=== PATIENT | female | born 2000 | race Caucasian/White ===

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

== ENCOUNTER 2018-04-08 09:41 | Emergency (ER) | END 2018-04-08 12:41 | disposition home or self-care (01) ==

== ENCOUNTER 2018-04-09 04:15 | Emergency (ER) | END 2018-04-09 08:00 | disposition home or self-care (01) ==

== ENCOUNTER 2018-08-17 09:13 | Emergency (ER) | payer MEDICAID ==
[~2018-08-17] VITALS: Ht 157.5 cm; Wt 52.4 kg
[~2018-08-17 09:13] MED LIST: BISM262O23 PO; DICY10CA40 PO; FAMO-96 PO; IBUP-1542 PO; METH750T93 PO; ONDA4TAB14 PO
[2018-08-17 09:16] VITALS: BP 149/77; PULSE 85; RESP 18; Ht 157.5 cm; Wt 52.4 kg
[2018-08-17] MEDS ORDERED: ONDANSETRON (ODT) 4 MG TAB ODT STA (09:36)
[2018-08-17] MEDS ORDERED: IBUPROFEN 800 MG TAB PO ONE (10:00)
[2018-08-17] MEDS ORDERED: FAMOTIDINE 20 MG TAB PO ONE (10:00)
[2018-08-17] MEDS ORDERED: FAMO-96 PO (11:07)
[2018-08-17] MEDS ORDERED: TRAM50TA2 PO (11:07)
--- NOTE | 2018-08-17 11:34 | ERD ---
ER Documentation Chief Complaint Chief Complaint EPIGASTRIC PAIN X 2 WKS DIARRHEA TODAY HPI 18-year-old female presenting with epigastric pain times 2 weeks. Patient has had diarrhea that started today. She states her pelvic pain is also associated with epigastric pain. She has had the symptoms for the last week and a half. LNMP July 24. Denies any dysuria. Denies fever. Has a history of gastritis. Denies medical problems. Allergy to Tylenol. Surgical history denies. Social history denies ROS All systems reviewed and are negative except as per history of present illness. Medications Home Meds Active Scripts Tramadol HCl (Tramadol HCl) 50 Mg Tablet, 50 MG PO Q4 PRN for PAIN, #20 TAB Prov:PASQUALE ALVARADO PA-C 08/17/18 Famotidine* (Pepcid*) 20 Mg Tablet, 20 MG PO BID for 4 Days, #30 TAB Prov:PASQUALE ALVARADO PA-C 08/17/18 Ondansetron (Ondansetron Odt) 4 Mg Tab.rapdis, 4 MG PO Q6H PRN for NAUSEA AND/OR VOMITING, #10 TAB Prov:LESIA UNDERWOOD MD 04/09/18 Ibuprofen* (Motrin*) 600 Mg Tab, 600 MG PO Q6H PRN for PAIN AND OR ELEVATED TEMP, #30 TAB Prov:LESIA UNDERWOOD MD 04/09/18 Methocarbamol* (Robaxin*) 750 Mg Tablet, 750 MG PO BID for muscle spasm, #30 TAB Prov:JUSTIN BECKETT DO 04/08/18 Ibuprofen* (Ibuprofen*) 600 Mg Tablet, 600 MG PO Q6H PRN for PAIN, #30 TAB Prov:JUSTIN BECKETT DO 04/08/18 Dicyclomine HCl (Dicyclomine HCl) 10 Mg Capsule, 10 MG PO TID, #20 Prov:GIANFRANCO CRUM 11/20/17 Famotidine* (Pepcid*) 20 Mg Tablet, 20 MG PO BID for 4 Days, TAB Prov:GIANFRANCO CRUM 11/20/17 Bismuth Subsalicylate* (Pepto-Bismol*) 262 Mg/15 Ml Oral.susp, 15 ML PO Q6H PRN for PAIN for 4 Days, #240 ML 0 Refills Prov:JESSIE SAUCEDA PA-C 01/21/16 Allergies Allergies: Coded Allergies: acetaminophen (Verified Allergy, Unknown, 08/17/18) PMhx/Soc History of Surgery: No Anesthesia Reaction: No Hx Neurological Disorder: No Hx Respiratory Disorders: No Hx Cardiac Disorders: No Hx Psychiatric Problems: No Hx Miscellaneous Medical Probl: No Hx Alcohol Use: No Hx Substance Use: No Hx Tobacco Use: No FmHx Family History: No diabetes, No coronary disease, No other Physical Exam Vitals Vital Signs Date Temp Pulse Resp B/P (MAP) Pulse Ox O2 O2 Flow FiO2 Time Delivery Rate 08/17/18 97.9 85 18 149/77 100 09:16 (101) Physical Exam GENERAL: The patient is well-appearing, well-nourished, in no acute distress HEENT: Atraumatic. Conjunctivae are pink. Pupils equal, round, and reactive to light. There is no scleral icterus. Tympanic membranes clear bilaterally. Oropharynx clear. NECK: C-spine is soft and supple. There is no meningismus. There is no cervical lymphadenopathy. CHEST: Clear to auscultation bilaterally. There are no rales, wheezes or rhonchi. HEART: Regular rate and rhythm. No murmurs, clicks, rubs or gallops. No S3 or S4. ABDOMEN: Normal active bowel sounds. No distention. No organomegaly. Mild tenderness palpation epigastric region and pelvic region. Result Diagram: 08/17/18 0951 08/17/18 0951 Results 24 hrs Laboratory Tests Test 08/17/18 09:51 08/17/18 09:53 White Blood Count 7.8 10^3/ul Red Blood Count 4.64 10^6/ul Hemoglobin 10.5 g/dl Hematocrit 35.2 % Mean Corpuscular Volume 75.9 fl Mean Corpuscular Hemoglobin 22.6 pg Mean Corpuscular Hemoglobin Concent 29.8 g/dl Red Cell Distribution Width 16.0 % Platelet Count 327 10^3/UL Mean Platelet Volume 10.7 fl Immature Granulocytes % 0.300 % Neutrophils % 50.8 % Lymphocytes % 38.5 % Monocytes % 7.5 % Eosinophils % 2.3 % Basophils % 0.6 % Nucleated Red Blood Cells % 0.0 /100WBC Immature Granulocytes # 0.020 10^3/ul Neutrophils # 4.0 10^3/ul Lymphocytes # 3.0 10^3/ul Monocytes # 0.6 10^3/ul Eosinophils # 0.2 10^3/ul Basophils # 0.1 10^3/ul Nucleated Red Blood Cells # 0.0 10^3/ul Urine Color YELLOW Urine Clarity CLEAR Urine pH 5.0 Urine Specific [place] 1.024 Urine Ketones NEGATIVE mg/dL Urine Nitrite NEGATIVE mg/dL Urine Bilirubin NEGATIVE mg/dL Urine Urobilinogen NEGATIVE mg/dL Urine Leukocyte Esterase NEGATIVE Edd/ul Urine Hemoglobin NEGATIVE mg/dL Urine Glucose NEGATIVE mg/dL Urine Total Protein NEGATIVE mg/dl Sodium Level 143 mmol/L Potassium Level 4.2 mmol/L Chloride Level 104 mmol/L Carbon Dioxide Level 28 mmol/L Anion Gap 11 Blood Urea Nitrogen 11 mg/dl Creatinine 0.83 mg/dl Est Glomerular Filtrat Rate mL/min > 60 mL/min Glucose Level 100 mg/dl Calcium Level 10.3 mg/dl Total Bilirubin 0.4 mg/dl Direct Bilirubin 0.00 mg/dl Indirect Bilirubin 0.4 mg/dl Aspartate Amino Transf (AST/SGOT) 16 IU/L Alanine Aminotransferase (ALT/SGPT) 15 IU/L Alkaline Phosphatase 73 IU/L Total Protein 7.9 g/dl Albumin 4.6 g/dl Globulin 3.30 g/dl Albumin/Globulin Ratio 1.39 Lipase 70 U/L POC Beta HCG, Qualitative NEGATIVE Current Medications Medications Dose Sig/Beni Start Time Status Last (Trade) Ordered Route PRN Stop Time Admin Dose Reason Admin Famotidine 20 mg ONCE ONCE 08/17/18 DC 08/17/18 (Pepcid) PO 10:00 09:53 08/17/18 10:01 Ibuprofen 800 mg ONCE ONCE 08/17/18 DC 08/17/18 (Motrin) PO 10:00 09:54 08/17/18 10:01 Ondansetron 4 mg ONCE STAT 08/17/18 DC 08/17/18 HCl (Zofran ODT 09:36 09:53 Odt) 08/17/18 09:38 Procedures/MDM DIAGNOSTIC IMAGING REPORT Patient: CELENA KNOX : 2000 Age: 18 Sex: F MR #: [id number] DOS: 08/17/18 0000 Ordering MD: ERIN ALVARADO PA-C Location: E Room/Bed: PROCEDURE: US Abdomen. CLINICAL INDICATION: abdominal pain TECHNIQUE: Multiple real-time images were acquired of the patient's right upper quadrant abdomen and retroperitoneum utilizing a high resolution transducer. COMPARISON: None FINDINGS: The liver demonstrates normal echogenicity. The liver is normal in size and no focal solid lesions are seen. The liver measures 11.4 cm in length. The portal vein is patent with normal direction of flow. No intrahepatic biliary dilatation is seen. No gallstones are identified within the gallbladder. There is no pericholecystic fluid or gallbladder wall thickening. The common bile duct measures 3 mm in maximal dimension. The visualized portions of the pancreas are unremarkable. The tail of the pancreas is not seen. No free fluid is identified. The right kidney is normal in size, and demonstrate normal echogenicity and cortical thickness. The right kidney measures 9.6 cm in long dimension. There is no evidence of hydronephrosis. There are no kidney stones. RPTAT: AA IMPRESSION: Unremarkable right upper quadrant abdominal ultrasound. DIAGNOSTIC IMAGING REPORT Patient: CELENA KNOX : 2000 Age: 18 Sex: F MR #: [id number] DOS: 08/17/18 0000 Ordering MD: ERIN ALVARADO PA-C Location: [facility] Room/Bed: PROCEDURE: US Pelvis. CLINICAL INDICATION: pelvic pain TECHNIQUE: Multiple sonographic images of the pelvis were obtained utilizing transabdominal and endovaginal technique. The images were reviewed on a PACS workstation. COMPARISON: None. FINDINGS: The uterus is normal in size with a normal appearance of the myometrium. The uterus measures 8.3 x 3.6 x 4.5 cm. The endometrial stripe is homogeneous in appearance and has the thickness of 11 mm. The ovaries are normal in size and echogenicity. Normal Doppler flow is identified in both ovaries. The right ovary measures 2.4 x 1.4 x 2.4 cm. The left ovary measures 3.9 x 2.2 x 3.0 cm. There is a 2.2 cm simple cyst in the left ovary. There is a small amount of free fluid in the posterior cul-de-sac. RPTAT: AA IMPRESSION: Small simple cyst in the left ovary. Small amount of free fluid in the posterior cul-de-sac. MDM: 18-year-old female presenting with epigastric pain times 2 weeks. Patient also has some pelvic pain. Patient has ovarian cyst which is likely causing pain. Blood work is within normal limits. I have low suspicion for other acute abdominal emergencies. I will suspicion for infectious etiology. Patient is di scharged with supportive medications and told to follow-up with primary care within 1-2 days for close evaluation. All questions answered at discharge Departure Diagnosis: Primary Impression: Epigastric pain Condition: Stable Patient Instructions: Epigastric Pain (Uncertain Cause) Referrals: [facility] YOU HAVE RECEIVED A MEDICAL SCREENING EXAM AND THE RESULTS INDICATE THAT YOU DO NOT HAVE A CONDITION THAT REQUIRES URGENT TREATMENT IN THE EMERGENCY DEPARTMENT. FURTHER EVALUATION AND TREATMENT OF YOUR CONDITION CAN WAIT UNTIL YOU ARE SEEN IN YOUR DOCTORS OFFICE WITHIN THE NEXT 1-2 DAYS. IT IS YOUR RESPONSIBILITY TO MAKE AN APPOINTMENT FOR FOLOW-UP CARE. IF YOU HAVE A PRIMARY DOCTOR --you should call your primary doctor and schedule an appointment IF YOU DO NOT HAVE A PRIMARY DOCTOR YOU CAN CALL OUR PHYSICIAN REFERRAL HOTLINE AT IF YOU CAN NOT AFFORD TO SEE A PHYSICIAN YOU CAN CHOSE FROM THE FOLLOWING [facility] [address] [facility] [address]. [facility] [address] [facility]. [facility] [address] [facility] [facility] [address] [facility]. [facility] [address] [facility]. [facility]. [address] [place] Additional Instructions: FOLLOW UP WITH YOUR PRIMARY CARE PHYSICIAN TOMORROW.Return to this facility if you are not improving as expected. PASQUALE ALVARADO PA-C Aug 17, 2018 11:34
== END 2018-08-17 11:41 | disposition home or self-care (01) ==
LOC: FTE 09:13
DX: R10.13 Epigastric pain (principal); R10.2 Pelvic and perineal pain
CPT/HCPCS: 36415; 76705; 76830; 76856; 80053; 81003; 81025; 83690; 85025; Z7502; Z7610